=== PATIENT | male | born 1995 | race African-American/Black ===

== ENCOUNTER 2024-03-02 12:54 | Emergency (ER) | payer SELFPAY ==
[~2024-03-02] VITALS: Ht 180.3 cm; Wt 75.0 kg
[2024-03-02 13:10] VITALS: O2SAT 98
[2024-03-02] MEDS ORDERED: ACET-2708 MT (16:54)
[2024-03-02] MEDS ORDERED: IBUP-2028 MT (16:54)
[2024-03-02 18:18] VITALS: BP 128/63; PULSE 74; RESP 18; TEMP 36.55848; O2SAT 98
== END 2024-03-02 18:18 | disposition home or self-care (01) ==
LOC: ER 12:54
DX: R52 Pain, unspecified (principal); Z59.00 Homelessness unspecified
CPT/HCPCS: 93005; 99283